=== PATIENT | male | born 1950 | race Caucasian/White ===

== ENCOUNTER 2019-01-31 12:55 | Emergency (ER) | payer OTHER ==
[~2019-01-31] VITALS: Ht 177.8 cm; Wt 88.9 kg
[2019-01-31 13:27] VITALS: Ht 177.8 cm; Wt 88.9 kg
[2019-01-31 15:51] VITALS: BP 142/81
== END 2019-01-31 15:51 | disposition home or self-care (01) ==
LOC: ED 12:55
DX: M10.9 Gout, unspecified (principal); I10 Essential (primary) hypertension; E78.00 Pure hypercholesterolemia, unspecified; Z98.890 Other specified postprocedural states